=== PATIENT | female | born 1970 | race Two or more races ===

== ENCOUNTER 2017-08-07 21:36 | Emergency (ER) | payer OTHER ==
[2017-08-07] MEDS: ACETAMINOPHEN 325 MG TAB PO (23:37)
== END 2017-08-08 01:31 | disposition home or self-care (01) ==
LOC: FTE 21:36
DX: R09.89 Other specified symptoms and signs involving the circulatory and respiratory systems (principal); R07.9 Chest pain, unspecified
CPT/HCPCS: 71045; 93005; 99284-25